=== PATIENT | female | born 1995 ===

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

== ENCOUNTER 2017-07-19 19:42 | Emergency (ER) | payer OTHER ==
[2017-07-19 19:56] VITALS: BP 134/88
--- NOTE | 2017-07-19 19:59 | UC ---
Throat Pain/Nasal Young HPI - HPI Summary HPI Summary: Pt presents with 1 week of chest congestion and dry cough. Thought it was viral and tried to let it run it's course, but yesterday developed a fever and sore throat. Fever today was 102F and her "glands feel swollen". Has been taking OTC tylenol cold and flu. Denies SOB, chest pain, abdominal pain, n/v/d/c. - History of Current Complaint Chief Complaint: UCGeneralIllness Stated Complaint: SORE THROAT Time Seen by Provider: 07/19/17 19:58 Hx Obtained From: Patient Hx Last Menstrual Period: missed period last week/stress? Onset/Duration: Gradual Onset Severity: Moderate Pain Intensity: 6 Pain Scale Used: 0-10 Numeric - Allergies/Home Medications Allergies/Adverse Reactions: Allergies Allergy/AdvReac Type Severity Reaction Status Date / Time No Known Allergies Allergy Verified 07/19/17 19:56 Home Medications: Home Medications Control 07/19/17 [History] PMH/Surg Hx/FS Hx/Imm Hx Previously Healthy: Yes - Surgical History Surgical History: None Surgery Procedure, Year, and Place: denies - Family History Known Family History: Negative: Cardiac Disease, Hypertension, Diabetes - Social History Occupation: Student Lives: Dormitory/Roommates Alcohol Use: Weekly Substance Use Type: None, Marijuana Smoking Status (MU): Never Smoked Tobacco Review of Systems Constitutional: Fever, Other - Body aches Skin: Negative Eyes: Negative ENT: Sore Throat Respiratory: Cough Cardiovascular: Negative Gastrointestinal: Negative Musculoskeletal: Negative Neurological: Negative Psychological: Negative All Other Systems Reviewed And Are Negative: Yes Physical Exam - Summary Physical Exam Summary: GENERAL: Mildly ill appearing. WDWN. No pain distress. SKIN: No rashes, sores, ulcers, masses, lesions. HEENT: Head: AT/NC Eyes: Conjunctiva clear without inflammation or discharge. Ears: Hearing grossly normal. TMs intact, no bulging, erythema, or edema. Nose: Nasal mucosa pink and moist. NTTP maxillary and frontal sinus. Throat: Posterior oropharynx mild erythema. 2+ tonsillar enlargement. No exudates. Uvula midline. No hoarse voice or muffled voice. NECK: Supple. Anterior LAD with mild TTP. CHEST: CTAB. No r/r/w. No accessory muscle use. Breathing comfortably and in no distress. CV: RRR. Without m/r/g. Pulses intact. Brisk cap refill. ABDOMEN: NTTP. No splenomegaly. NEURO: Alert. CN II-XII grossly intact. PSYCH: Age appropriate behavior. Triage Information Reviewed: Yes Vital Signs: Initial Vital Signs Temp 102.3 F 07/19/17 19:48 Pulse 135 07/19/17 19:48 Resp 18 07/19/17 19:48 BP 134/88 07/19/17 19:48 Pulse Ox 97 07/19/17 19:48 Throat Pain/Nasal Course/Dx - Course Course Of Treatment: POC strep negative. POC flu negative. Ibuprofen and Azithromycin given in clinic tonight. Suspect mono vs viral illness vs undetected strep. Draw for CBC and mono - will call with results. - Differential Dx/Diagnosis Provider Diagnoses: Pharyngitis Discharge - Discharge Plan Condition: Stable Disposition: HOME Prescriptions: Azithromycin TAB* [Zithromax TAB (Z-KENNEDY) 250 mg #6 tabs] 2 tab PO .TODAY, THEN 1 DAILY #1 kennedy Patient Education Materials: Mononucleosis (ED), Pharyngitis (ED) Referrals: No Primary Care Phys,NOPCP [Primary Care Provider] - Additional Instructions: If you develop a fever, shortness of breath, chest pain, new or worsening symptoms - please call your PCP or go to the ED. Your blood pressure was high at todays visit. Please see your primary provider within 4 weeks for recheck and re-evaluation. 1) We will call you tomorrow or Friday with the results of your Dare test. If you have not heard from our office and would like to know your results, please call us at [phone]
[2017-07-19] MEDS ORDERED: Ibuprofen TAB* 600 MG PO ONE (20:06)
[2017-07-19] MEDS ORDERED: Azithromycin TAB* 250 MG PO ONE (20:41)
[2017-07-20 13:54] LABS: Hematocrit 41 % (35-47); Hemoglobin 14.1 g/dl (12.0-16.0); Mean Corpuscular HGB Conc 35 g/dl (31-36); Mean Corpuscular Hemoglobin 29 pg (27-31); Mean Corpuscular Volume 84 fL (80-97); Mean Platelet Volume 8 um3 (7.4-10.4); Platelet Count 236 10^3/ul (150-450); Red Blood Count 4.84 10^6/ul (4.0-5.4); Red Cell Distribution Width 13 % (10.5-15); White Blood Count 15.9 10^3/ul (3.5-10.8)
[2017-07-20 13:55] LABS: ABS Basophils 0 10^3/ul (0-0.2); ABS Eosinophils 0 10^3/ul (0-0.6); ABS Lymphocytes 1.3 10^3/ul (1.0-4.8); ABS Neutrophils 13.5 10^3/ul (1.5-7.7); ABS Nucleated RBC 0 10^3/ul; Nucleated Red Blood Cells % 0.1
[2017-07-20 14:17] LABS: Monocytes % 6 % (0-7)
--- NOTE | 2017-07-20 15:12 | UC ---
- Progress Note Progress Note: Labs returned. CBC with increased WBC and left shift. Monospot negative. Pt was treated with anbx at visit. Strep and flu were negative, but oropharynx appeared strep-like vs mono. Await EBV --no change
--- NOTE | 2017-07-21 16:42 | UC ---
- Progress Note Progress Note: Please call patient is sure her symptoms are resolving by her know her Monospot was negative if she has continued symptoms to please we seek care with primary care doctor or emergency department
== END 2017-07-19 20:57 | disposition home or self-care (01) ==
LOC: UCEAST 19:42
DX: J02.9 Acute pharyngitis, unspecified (principal)
CPT/HCPCS: 36415; 85025; 85060; 86308; 86664; 86665; 87502; 87651; 99212; A9270-GY; G0463